=== PATIENT | female | born 1990 ===

== ENCOUNTER 2021-06-28 10:33 | Outpatient (CLI) | payer OTHER | END 2021-06-28 11:34 | disposition home or self-care (01) | LOC: PRENATAL 10:33 | PROVIDERS: ATTEND Obstetrics & Gynecology Maternal & Fetal Medicine | DX: O35.0XX1 Maternal care for (suspected) central nervous system malformation in fetus, fetus 1 (principal); O35.3XX1 Maternal care for (suspected) damage to fetus from viral disease in mother, fetus 1; O98.512 Other viral diseases complicating pregnancy, second trimester; Z36.89 Encounter for other specified antenatal screening; Z3A.21 21 weeks gestation of pregnancy ==

== ENCOUNTER 2021-09-20 09:04 | Outpatient (CLI) | payer OTHER | END 2021-09-20 09:51 | disposition home or self-care (01) | LOC: PRENATAL 09:04 | PROVIDERS: ATTEND Obstetrics & Gynecology Maternal & Fetal Medicine | DX: O26.849 Uterine size-date discrepancy, unspecified trimester (principal); O36.8199 Decreased fetal movements, unspecified trimester, other fetus; Z3A.32 32 weeks gestation of pregnancy ==

== ENCOUNTER 2021-10-29 08:10 | Inpatient (IN) | payer OTHER ==
[~2021-10-29] VITALS: Ht 157.5 cm; Wt 2.7 kg
[2021-10-29] MEDS ORDERED: PRENATAL TABLE1 EAC3 PO (08:40)
[2021-11-01] MEDS ORDERED: NAPR500T14 PO (13:31)
[2021-11-01] MEDS ORDERED: Tylenol #3 PO (13:31)
== END 2021-11-01 14:22 | disposition home or self-care (01) | DRG 788 ==
LOC: OB/GYN 08:10 → LDR 08:10 → OB/GYN 22:44
PROVIDERS: ADMIT Obstetrics & Gynecology; ATTEND Obstetrics & Gynecology
PROC: 4A1HXCZ Monitoring of Products of Conception, Cardiac Rate, External Approach (ICD-10-PCS; 2021-10-29)
PROC: 10D00Z1 Extraction of Products of Conception, Low, Open Approach (ICD-10-PCS; principal; 2021-10-29 20:45)
DX: O62.1 Secondary uterine inertia (principal); O42.02 Full-term premature rupture of membranes, onset of labor within 24 hours of rupture; Z3A.38 38 weeks gestation of pregnancy; Z37.0 Single live birth; Z20.822 Contact with and (suspected) exposure to COVID-19